=== PATIENT | female | born 1995 | race Caucasian/White ===

== ENCOUNTER 2017-09-25 16:33 | Emergency (ER) | payer OTHER ==
[2017-09-25 17:20] LABS: URINE HCG POC HCG POSITIVE (Negative)
[2017-09-25 18:05] LABS: BILIRUBIN,URINE SMALL (NEG); CLARITY,URINE CLEAR; COLOR,URINE AMBER; GLUCOSE,URINE NEGATIVE (NEG); NITRITE,URINE POSITIVE (NEG); PROTEIN,URINE NEGATIVE (NEG-TRACE)
[2017-09-25 18:15] LABS: ADD MAN DIFF? NO
[2017-09-25 18:16] LABS: BASO % 1 % (0-3); EOS # 0.1 x10^3/uL (0.0-0.7); EOS % 1 % (0-3); HEMATOCRIT 32.2 % (36.0-47.0); HEMOGLOBIN 10.9 g/dL (12.0-15.5); LYMPH % 12 % (24-48); MEAN CORPUSCULAR HEMOGLOBIN 30 pg (25-35); MEAN CORPUSCULAR HGB CONC 34 g/dL (31-37); MEAN CORPUSCULAR VOLUME 88 fL (79-100); MONO # 0.4 x10^3/uL (0.0-1.1); MONO % 4 % (0-9); NEUT # 7.2 x10^3uL (1.8-7.7); NEUT % 83 % (31-73); PLATELET COUNT 226 x10^3/uL (140-400); RED BLOOD COUNT 3.65 x10^6/uL (3.50-5.40); RED CELL DISTRIBUTION WIDTH 14.4 % (11.5-14.5); WHITE BLOOD COUNT 8.7 x10^3/uL (4.0-11.0)
[2017-09-25] MEDS: IV NORMAL SALINE 1000ML BAG 1,000 ML IV (18:25)
[2017-09-25 18:28] LABS: BACTERIA,URINE MANY /HPF (0-FEW); RBC,URINE 0 /HPF (0-2); SQUAMOUS EPITHELIAL CELL,UR MOD /LPF
[2017-09-25 18:30] LABS: PARTIAL THROMBOPLASTIN TIME 26 SEC (24-38); PROTHROMBIN TIME PATIENT 12.6 SEC (11.7-14.0)
[2017-09-25 18:43] LABS: ANION GAP 11 (6-14); BLOOD UREA NITROGEN 7 mg/dL (7-20); BUN/CREATININE RATIO 14 (6-20); CALCIUM 7.7 mg/dL (8.5-10.1); CARBON DIOXIDE 24 mmol/L (21-32); CHLORIDE 104 mmol/L (98-107); CREATININE 0.5 mg/dL (0.6-1.0); GFR 152.9; GLUCOSE 68 mg/dL (70-99); POTASSIUM 3.6 mmol/L (3.5-5.1); SODIUM 139 mmol/L (136-145)
[2017-09-25 18:48] LABS: ALBUMIN 2.7 g/dL (3.4-5.0); ALBUMIN/GLOBULIN RATIO 0.7 (1.0-1.7); ALK PHOS 49 U/L (46-116); ALT (SGPT) 10 U/L (14-59); AST (SGOT) 13 U/L (15-37); MAGNESIUM 1.9 mg/dL (1.8-2.4); TOTAL BILIRUBIN 0.2 mg/dL (0.2-1.0); TOTAL PROTEIN 6.4 g/dL (6.4-8.2)
[2017-09-25] MEDS: NITROFURANTOIN MONOHYD/M-CRYST 100 MG CAPSULE. PO (20:19)
[2017-09-25 20:22] LABS: TYPE AND SCREEN 1 1
[2017-09-26 19:12] LABS: CHLAMYDIA PROBE Positive (Negative); GC PROBE Negative (Negative)
== END 2017-09-25 20:47 | disposition home or self-care (01) ==
LOC: ER 16:33
DX: O46.90 Antepartum hemorrhage, unspecified, unspecified trimester (principal); O23.40 Unspecified infection of urinary tract in pregnancy, unspecified trimester; O23.599 Infection of other part of genital tract in pregnancy, unspecified trimester; N76.0 Acute vaginitis; B96.89 Other specified bacterial agents as the cause of diseases classified elsewhere; Z67.91 Unspecified blood type, Rh negative; Z3A.00 Weeks of gestation of pregnancy not specified
CPT/HCPCS: 36415; 80053; 81001; 81025; 83735; 84702; 85025; 85610; 85730; 86850; 86900; 86901; 87086; 87186; 87491; 87591; 96360; 99285-25; J2791; J7030; Q0111